=== PATIENT | female | born 1980 | race Caucasian/White ===

== ENCOUNTER 2017-05-15 18:43 | Emergency (ER) | payer MEDICAID ==
[~2017-05-15] VITALS: Ht 154.9 cm; Wt 64.9 kg
[2017-05-15 18:48] VITALS: BP 125/81
--- NOTE | 2017-05-15 18:58 | NUR ---
37F BIB SELF WITH C/O 7/10 "SHARP" CONSTANT MID LOWER ABD PAIN X2 WEEKS, HEADACHE AND N/V X2 WEEKS; PT REPORTS OF FEELING "BLOATED"; PT ALSO REPORTS OF C/O VAGINAL DISCHARGE; PT DENIES ANY FEVERS OR VAGINAL DISCHARGE. PT IS AOX4 WITH STEADY GAIT. SKIN WARM/DRY/COLOR APPRIOPRIATE FOR ETHNICITY. NO ACUTE DISTRESS NOTED. AWAITING ER MD WAITE. ALL NEEDSS MET AT THIS TIME. WILL CONTINUE TO MONITOR.
--- NOTE | 2017-05-15 19:13 | NUR ---
Pt report given to Koko DAVE. Transfer of care at this time.
--- NOTE | 2017-05-15 19:42 | NUR ---
Dr. Cloud evaluating patient.
[2017-05-15] MEDS ORDERED: KETOROLAC 60 MG/2 ML VIAL IM ONE (19:50)
[2017-05-15 20:46] LABS: BASOPHILS # (AUTO) 0.2 K/uL (0.00-0.22); BASOPHILS % (AUTO) 2.4 % (0.0-2.0); EOSINOPHILS # (AUTO) 0.1 K/uL (0-0.4); HEMATOCRIT 43.9 % (36-48); HEMOGLOBIN 14.6 g/dL (12.0-16.0); LYMPHOCYTES # (AUTO) 1.6 K/uL (2.5-16.5); LYMPHOCYTES % (AUTO) 20.1 % (20.5-51.1); MEAN CORPUSCULAR HEMOGLOBIN 30 pg (27-31); MEAN CORPUSCULAR HGB CONC 33 g/dL (33-37); MEAN CORPUSCULAR VOLUME 89.9 fL (80-94); MONOCYTES # (AUTO) 0.5 K/uL (0.8-1.0); MONOCYTES % (AUTO) 6.5 % (1.7-9.3); NEUTROPHILS # (AUTO) 5.8 K/uL (1.8-7.7); PLATELET COUNT (AUTO) 278 K/uL (140-450); RED BLOOD CELL COUNT(AUTO) 4.88 MIL/uL (4.20-5.40); RED CELL DISTRIBUTION WIDTH 11.4 % (11.6-13.7); WHITE BLOOD COUNT (AUTO) 8.2 K/uL (4.8-10.8)
[2017-05-15 20:47] LABS: ANION GAP 11.4 (8-16); CARBON DIOXIDE 30.3 mmol/L (21-32); CREATININE 1.1 mg/dL (0.6-1.3); POTASSIUM 3.7 mmol/L (3.5-5.1)
[2017-05-15 20:50] LABS: ALBUMIN 3.6 g/dL (3.4-5.0); TOTAL BILIRUBIN 0.3 mg/dL (0.0-1.0)
[2017-05-15 21:55] VITALS: BP 101/59
--- NOTE | 2017-05-15 21:55 | NUR ---
Patient discharged with v/s stable. Written and verbal after care instructions given and explained. Patient verbalized understanding. Ambulatory with steady gait. All questions addressed prior to discharge. Advised to follow up with PMD.
== END 2017-05-15 21:55 | disposition home or self-care (01) ==
LOC: MED 18:43
DX: R10.2 Pelvic and perineal pain (principal); R11.0 Nausea; Z86.73 Personal history of transient ischemic attack (TIA), and cerebral infarction without residual deficits; I10 Essential (primary) hypertension
CPT/HCPCS: 36415; 80053; 81002; 81025; 83690; 84703; 85025; 96372; 99284; J1885

== ENCOUNTER 2018-01-11 17:10 | Emergency (ER) | payer MEDICAID ==
[~2018-01-11] VITALS: Ht 154.9 cm; Wt 63.5 kg
[2018-01-11 17:42] VITALS: BP 122/73
--- NOTE | 2018-01-11 18:14 | NUR ---
WAIT IN LOBBY
--- NOTE | 2018-01-11 18:48 | NUR ---
PT AMBULATED TO BED 04
--- NOTE | 2018-01-11 18:59 | NUR ---
PT C/O RIGHT ELBOW PAIN X 4 DAYS S/P LIFTING WEIGHT. TOOK IBUPROFEN 800 MG X 9.00 AM TODAY. PATIENT STATES PAIN OF 8/10 AT THIS TIME; VSS; PATIENT POSITIONED FOR COMFORT; HOB ELEVATED; BEDRAILS UP X1; BED DOWN. ER MD MADE AWARE OF PT STATUS.
--- NOTE | 2018-01-11 19:23 | NUR ---
PT LAYING IN BED, NO NEW NEEDS AT THIS TIME, PENDING MD WAITE.
[2018-01-11 19:51] VITALS: BP 132/70
--- NOTE | 2018-01-11 19:52 | NUR ---
Patient discharged with v/s stable. Written and verbal after care instructions given and explained. Patient alert, oriented and verbalized understanding of instructions. Ambulatory with steady gait. All questions addressed prior to discharge. ID band removed. Patient advised to follow up with PMD. Rx of TYLENOL XS given. Patient educated on indication of medication including possible reaction and side effects. Opportunity to ask questions provided and answered.
== END 2018-01-11 19:51 | disposition home or self-care (01) ==
LOC: MED 17:10
DX: M25.521 Pain in right elbow (principal); I10 Essential (primary) hypertension; Z86.73 Personal history of transient ischemic attack (TIA), and cerebral infarction without residual deficits
CPT/HCPCS: 99283

== ENCOUNTER 2019-05-10 11:23 | Emergency (ER) | payer MEDICAID ==
[~2019-05-10] VITALS: Ht 154.9 cm; Wt 64.4 kg
[2019-05-10 11:26] VITALS: BP 122/62
--- NOTE | 2019-05-10 11:34 | NUR ---
PT TO RESTROOM FOR URINE SAMPLE.
--- NOTE | 2019-05-10 11:44 | NUR ---
DR MCGOVERN EVALUATING PT AT BEDSIDE.
--- NOTE | 2019-05-10 11:46 | NUR ---
39F Right Inguinal hernia x1.5 weeks. Pt seen PCP yesterday for general surgery for consult and further evaluation. Pain 9/10, constant pain with movement. Tender tender touch. no n/v/d. AAO x 4. rails up x 1, bed at lowest.
--- NOTE | 2019-05-10 12:05 | NUR ---
Pt. laying down in bed comfortably. no further needs at this time. rails up x 1, bed at lowest and locked.
--- NOTE | 2019-05-10 12:20 | NUR ---
ultrasound at bedside.
--- NOTE | 2019-05-10 13:03 | NUR ---
pt. on bed laying down, awake and alert and calm. no further needs at this time. rails up x1, bed at lowest and locked.
--- NOTE | 2019-05-10 13:49 | NUR ---
PT TAKEN TO CT VIA AVNI
[2019-05-10 14:21] LABS: BASOPHILS % (AUTO) 0.4 % (0.0-2.0); EOSINOPHILS # (AUTO) 0.1 K/uL (0-0.4); EOSINOPHILS % (AUTO) 1.1 % (0.0-4.0); HEMATOCRIT 39.7 % (36-48); HEMOGLOBIN 13.4 g/dL (12.0-16.0); LYMPHOCYTES # (AUTO) 2.1 K/uL (2.5-16.5); LYMPHOCYTES % (AUTO) 22.7 % (20.5-51.1); MEAN CORPUSCULAR HEMOGLOBIN 31 pg (27-31); MEAN CORPUSCULAR HGB CONC 34 g/dL (33-37); MONOCYTES # (AUTO) 0.4 K/uL (0.8-1.0); MONOCYTES % (AUTO) 4.7 % (1.7-9.3); NEUTROPHILS # (AUTO) 6.5 K/uL (1.8-7.7); NEUTROPHILS % (AUTO) 71.1 % (42.2-75.2); PLATELET COUNT (AUTO) 245 K/uL (140-450); RED BLOOD CELL COUNT(AUTO) 4.32 MIL/uL (4.20-5.40); RED CELL DISTRIBUTION WIDTH 12.8 % (11.6-13.7); WHITE BLOOD COUNT (AUTO) 9.2 K/uL (4.8-10.8)
--- NOTE | 2019-05-10 14:48 | NUR ---
Pt. laying down in bed comfortably. no needs at this time. IV site clean and patent. bed at lowest and locked, rails up x1.
[2019-05-10 15:16] LABS: ALBUMIN 3.2 g/dL (3.4-5.0); ANION GAP 9.4 (8-16); CREATININE 0.9 mg/dL (0.6-1.3); POTASSIUM 4.4 mmol/L (3.5-5.1); TOTAL BILIRUBIN 0.2 mg/dL (0.0-1.0)
--- NOTE | 2019-05-10 15:45 | NUR ---
Patient discharged with v/s stable. Written and verbal after care instructions given and explained. Patient verbalized understanding. Ambulatory with steady gait. All questions addressed prior to discharge. Pt discharged with a copy of CT results in a CD. Cosigned by TENZIN Klein and Stan DAVE Advised to follow up with PMD.
[2019-05-10 15:50] VITALS: BP 106/84
== END 2019-05-10 15:45 | disposition home or self-care (01) ==
LOC: MED 11:23
DX: R19.00 Intra-abdominal and pelvic swelling, mass and lump, unspecified site (principal); I10 Essential (primary) hypertension; Z86.73 Personal history of transient ischemic attack (TIA), and cerebral infarction without residual deficits; Z98.890 Other specified postprocedural states
CPT/HCPCS: 36415; 74177; 76536; 80053; 81002; 81025; 85025; 99285; Q0092; Q9967

== ENCOUNTER 2019-05-25 17:03 | Emergency (ER) | payer MEDICAID ==
[~2019-05-25] VITALS: Ht 157.5 cm; Wt 65.3 kg
[2019-05-25 17:10] VITALS: BP 120/70
[2019-05-25] MEDS ORDERED: KETOROLAC 60 MG/2 ML VIAL IM ONE (18:10)
[2019-05-25 19:20] VITALS: BP 116/65
== END 2019-05-25 19:14 | disposition home or self-care (01) ==
LOC: MED 17:03
DX: N83.209 Unspecified ovarian cyst, unspecified side (principal); I10 Essential (primary) hypertension; Z79.899 Other long term (current) drug therapy; Z86.73 Personal history of transient ischemic attack (TIA), and cerebral infarction without residual deficits
CPT/HCPCS: 81002; 81025; 96372; 99283; J1885

== ENCOUNTER 2022-08-11 13:15 | Emergency (ER) | payer MEDICAID ==
[~2022-08-11] VITALS: Ht 157.5 cm; Wt 82.1 kg
[2022-08-11 14:53] VITALS: BP 140/76
--- NOTE | 2022-08-11 14:58 | NUR ---
URINE COLLECTED IN TRIAGE
--- NOTE | 2022-08-11 15:44 | NUR ---
call out to lobby no answer
[2022-08-11 16:28] LABS: APPEARANCE,URINE CLEAR (CLEAR); BILIRUBIN,URINE NEGATIVE (NEGATIVE); BLOOD, URINE TRACE-I (NEGATIVE); COLOR,URINE YELLOW (YELLOW); LEUKOCYTE ESTERASE ,URINE NEGATIVE (NEGATIVE); NITRITE, URINE POSITIVE (NEGATIVE); PH,URINE 5.5 (5.0-9.0); UGLUCOSE NEGATIVE (NEGATIVE)
[2022-08-11] MEDS ORDERED: IBUP-2213 PO (16:39)
[2022-08-11 16:46] LABS: RBC,URINE 0-5 /HPF (0-5)
[2022-08-11] MEDS ORDERED: SIME80TA41 PO (16:51)
[2022-08-11] MEDS ORDERED: ACET-2619 PO (16:51)
[2022-08-11 17:00] VITALS: BP 140/76
--- NOTE | 2022-08-11 17:00 | NUR ---
Patient discharged with v/s stable. Written and verbal after care instructions FOR PELVICPAIN AND OVARIAN CYST given and explained. Patient alert, oriented and verbalized understanding of instructions. Ambulatory with steady gait. All questions addressed prior to discharge. ID band removed. Patient advised to follow up with PMD. Rx of TYLENOL, IBUPROFEN AND SIMETHICONE given. Opportunity to ask questions provided and answered. WORK NOTE, COPY OF US PROVIDED.
--- NOTE | 2022-08-11 17:55 | NUR ---
The patient's care was reviewed and supervised by [place] [facility], RN.
== END 2022-08-11 17:00 | disposition home or self-care (01) ==
LOC: MED 13:15
DX: N83.292 Other ovarian cyst, left side (principal); D25.9 Leiomyoma of uterus, unspecified; I10 Essential (primary) hypertension; Z86.73 Personal history of transient ischemic attack (TIA), and cerebral infarction without residual deficits; Z79.899 Other long term (current) drug therapy
CPT/HCPCS: 76856; 81001; 81025; 87086; 87491; 99284; Q0092

== ENCOUNTER 2023-06-05 09:53 | Emergency (ER) | payer MEDICAID, OTHER ==
[~2023-06-05] VITALS: Ht 154.9 cm; Wt 80.7 kg
[~2023-06-05 09:53] MED LIST: ACET-2619 PO; IBUP-2213 PO; SIME80TA41 PO
[2023-06-05 10:12] VITALS: BP 117/82; PULSE 74; RESP 18; TEMP 97.4; O2SAT 98
[2023-06-05] MEDS: KETOROLAC 30 MG/ML VIAL IM ONE (11:17)
[2023-06-05 11:21] LABS: APPEARANCE,URINE CLEAR (CLEAR); BILIRUBIN,URINE NEGATIVE (NEGATIVE); BLOOD, URINE NEGATIVE (NEGATIVE); COLOR,URINE YELLOW (YELLOW); LEUKOCYTE ESTERASE ,URINE NEGATIVE (NEGATIVE); NITRITE, URINE NEGATIVE (NEGATIVE); PROTEIN,URINE NEGATIVE (NEGATIVE); UGLUCOSE NEGATIVE (NEGATIVE); UROBILINOGEN,URINE 0.2 EU/dL (0.2 - 1)
[2023-06-05 11:40] LABS: BASOPHILS % (AUTO) 0.4 % (0.0-2.0); EOSINOPHILS # (AUTO) 0.1 K/uL (0-0.4); EOSINOPHILS % (AUTO) 1.5 % (0.0-4.0); HEMATOCRIT 41.9 % (36-48); HEMOGLOBIN 14.3 g/dL (12.0-16.0); LYMPHOCYTES # (AUTO) 1.6 K/uL (2.5-16.5); MEAN CORPUSCULAR HEMOGLOBIN 30 pg (27-31); MEAN CORPUSCULAR HGB CONC 34 g/dL (33-37); MEAN CORPUSCULAR VOLUME 88.9 fL (80-94); MONOCYTES # (AUTO) 0.4 K/uL (0.8-1.0); MONOCYTES % (AUTO) 6.5 % (1.7-9.3); NEUTROPHILS # (AUTO) 4.6 K/uL (1.8-7.7); NEUTROPHILS % (AUTO) 67.6 % (42.2-75.2); PLATELET COUNT (AUTO) 280 K/uL (140-450); RED BLOOD CELL COUNT(AUTO) 4.71 MIL/uL (4.20-5.40); RED CELL DISTRIBUTION WIDTH 12.9 % (11.6-13.7); WHITE BLOOD COUNT (AUTO) 6.9 K/uL (4.8-10.8)
[2023-06-05 11:59] LABS: ANION GAP 10.4 (8-16); CALCIUM 8.9 mg/dL (8.5-10.1); CREATININE 0.8 mg/dL (0.6-1.3); POTASSIUM 4.4 mmol/L (3.5-5.1)
[2023-06-05 12:29] LABS: ALBUMIN 3.2 g/dL (3.4-5.0); BILIRUBIN,DIRECT 0.1 mg/dL (0.0-0.3); TOTAL BILIRUBIN 0.2 mg/dL (0.0-1.0); TOTAL PROTEIN, SERUM 6.6 g/dL (6.4-8.2)
[2023-06-05 13:19] VITALS: BP 117/82; PULSE 74; RESP 18; TEMP 97.4; O2SAT 98
== END 2023-06-05 13:21 | disposition home or self-care (01) ==
LOC: MED 09:53
DX: K42.9 Umbilical hernia without obstruction or gangrene (principal); N83.201 Unspecified ovarian cyst, right side; I10 Essential (primary) hypertension; Z86.73 Personal history of transient ischemic attack (TIA), and cerebral infarction without residual deficits; Z79.899 Other long term (current) drug therapy
CPT/HCPCS: 36415; 71045; 74176; 80048; 80076; 81003; 81025; 83690; 85025; 96372; 99285; J1885; Q0092